=== PATIENT | male | born 1940 | race Caucasian/White ===

== ENCOUNTER 2017-12-17 16:44 | Emergency (ER) | payer OTHER ==
[~2017-12-17] VITALS: Ht 172.7 cm; Wt 90.7 kg
[2017-12-17 18:04] LABS: HEMATOCRIT 49.9 % (38.0-50.0); HEMOGLOBIN 17.2 G/DL (12.5-16.6); MCH 30.4 PG (29.0-34.0); MCHC 34.5 G/DL (30.0-36.0); MCV 88.2 FL (86-99); PLATELET COUNT 205 K/uL (156-360); RBC DIS.WIDTH-SD 45.1 % (39-53); RED BLOOD COUNT 5.66 M/uL (4.00-5.50)
[2017-12-17 18:12] LABS: INTER. NORMALIZED RATIO 1.1
[2017-12-17 18:14] LABS: D-DIMER ELISA < 150.00 ng/mLDDU (<230)
[2017-12-17 18:15] LABS: ALBUMIN 4.2 g/dL (3.2-4.8); CHLORIDE 113 mEq/L (99-109); POTASSIUM 3.8 mEq/L (3.7-5.4); PTT 26.6 SEC (25-37)
[2017-12-17 18:16] LABS: SODIUM 144 mEq/L (136-147)
[2017-12-17 18:18] LABS: GLUCOSE 101 mg/dL (70-99); TOTAL PROTEIN 7.2 g/dL (6.4-8.3)
[2017-12-17 18:20] LABS: TOTAL BILIRUBIN 1.2 mg/dL (0.0-1.0)
[2017-12-17 18:21] LABS: ALKALINE PHOSPHATASE 108 IU/L (3-129); CREATININE 1.3 mg/dL (0.6-1.3); GFR ESTIMATE (CALCULATED) 57 mL/min/ (58.99-99999)
[2017-12-17 18:23] LABS: AST (GOT) 22 IU/L (2-34); UREA NITROGEN (BUN) 12 mg/dL (9-23)
[2017-12-17 18:24] LABS: ALT (GPT) 18 IU/L (3-49)
[2017-12-17 18:25] LABS: TROP-I INTERPRETATION NEGATIVE; TROPONIN-I < 0.01 ng/mL (0.0-0.30)
[2017-12-17] MEDS ORDERED: ATORVASTATIN CA10 MG PO (20:10)
[2017-12-17] MEDS ORDERED: ASPIR 8181 M1 PO (20:10)
[2017-12-17 20:44] LABS: TROP-I INTERPRETATION NEGATIVE; TROPONIN-I < 0.01 ng/mL (0.0-0.30)
[2017-12-17] MEDS ORDERED: IBU600 MG PO (21:10)
[2017-12-17 21:48] VITALS: BP 125/70
== END 2017-12-17 21:50 | disposition home or self-care (01) ==
LOC: EME 16:44
PROVIDERS: Emergency Medicine
DX: R07.89 Other chest pain (principal); I25.2 Old myocardial infarction; Z87.891 Personal history of nicotine dependence
CPT/HCPCS: 71046; 80053; 84484; 85027; 85379; 85610; 85730; 93005; 99281; 99285